=== PATIENT | female | born 1965 | race Caucasian/White ===

== ENCOUNTER 2025-02-23 10:43 | Outpatient (REF) | payer BC, SELFPAY ==
--- NOTE | 2025-02-23 10:30 | PAPFT_PTH ---
PATIENT: Lauren Segura LOC: [facility] U#:[id number] AGE/SX: 59/F ROOM: RE02/23/[address]: Toma Hanna MD : 1965 BED: DIS: 02/23/2025 SPEC #: [id number] RECD: 02/23/25 12:55 STATUS: KOMAL REArya #: [id number] VILMA: 02/23/25 10:[address]: Toma Hanna DEPT: [facility] Cytology RECD BY: Kierra Sánchez ENTERED: 02/23/25 12:55 SP TYPE: PAPFT MINERVA DR: Unknown,Unknown Tissues: 1 - CX/ENDOCX FOR PAP SMEARS Procedures: PAP THIN PREP/[facility] Screening HPV DNA PROBE Comments: [id number] (HPV 16 & 18/45)
== END 2025-02-23 10:44 | disposition home or self-care (01) ==
LOC: LBN 10:43
PROVIDERS: Visit Provider Obstetrics & Gynecology
DX: Z12.4 Encounter for screening for malignant neoplasm of cervix (principal)
CPT/HCPCS: 88142; 87624